=== PATIENT | female | born 1985 | race American Indian/Alaskan Native ===

== ENCOUNTER 2020-11-25 12:46 | Emergency (ER) | payer SELFPAY ==
[2020-11-25 14:01] VITALS: BP 110/79
[2020-11-25 16:07] LABS: Basophils # (Auto) 0.1 K/mm3 (0.0-0.1); Basophils % (Auto) 1.2 % (0.0-1.8); Eosinophils # (Auto) 0.1 K/mm3 (0.0-0.4); Eosinophils % (Auto) 2.9 % (0.0-4.3); Hematocrit 36.6 % (30.3-42.9); Hemoglobin 11.9 gm/dl (10.1-14.3); Lymphocytes # (Auto) 1.9 K/mm3 (1.2-5.4); Mean Corpuscular HGB Conc 33 % (30-34); Mean Corpuscular Volume 79 fl (79-97); Monocytes # (Auto) 0.4 K/mm3 (0.0-0.8); Monocytes % (Auto) 7.1 % (0.0-7.3); Platelet Count 311 K/mm3 (140-440); Red Blood Count 4.62 M/mm3 (3.65-5.03); Red Cell Distribution Width 16.7 % (13.2-15.2)
--- NOTE | 2020-11-25 16:12 | Emergency Department Report ---
ED HPI - General Chief complaint: Vaginal Bleeding Stated complaint: MISCARRIAGE Time Seen by Provider: 11/25/20 14:55 Source: patient Mode of arrival: Ambulatory Limitations: No Limitations - History of Present Illness Initial comments: 35-year-old female presents to the ER today with complaint of abnormal vaginal bleeding and . Patient states that she took a home test this past Monday and it was positive. She states that she started with light pink spotting today. She states that she has only had to use 1 pad. Her last menstrual cycle was October 15. She denies any abdominal pain cramping/pelvic pain or any abnormal discharge. She is G3, P0 Ab2 (1 miscarriage, 1 ). She denies any history of anemia or any abnormal bleeding disorders. She is not on any blood thinners. She reports no additional symptoms at this time. MD Complaint: vaginal bleeding -: Sudden - Related Data Allergies Allergy/AdvReac Type Severity Reaction Status Date / Time Sulfa (Sulfonamide Allergy Swelling Verified 11/25/20 13:57 Antibiotics) ED Review of Systems ROS: Stated complaint: MISCARRIAGE Other details as noted in HPI Comment: All other systems reviewed and negative Constitutional: denies: chills, fever Eyes: denies: eye pain, eye discharge, vision change ENT: denies: ear pain, throat pain, dental pain, hearing loss, epistaxis, congestion Respiratory: denies: cough, shortness of breath, SOB with exertion, SOB at rest, wheezing Cardiovascular: denies: chest pain, palpitations Gastrointestinal: denies: abdominal pain, nausea, vomiting, diarrhea, constipation, hematemesis Genitourinary: denies: urgency, dysuria, frequency, hematuria, discharge, abnormal menses, dyspareunia Musculoskeletal: denies: back pain, joint swelling, arthralgia Skin: denies: rash, lesions, change in color, change in hair/nails, pruritus Neurological: denies: headache, weakness, numbness, paresthesias, confusion, a bnormal gait, vertigo Psychiatric: denies: anxiety, depression, auditory hallucinations, visual hallucinations, homicidal thoughts, suicidal thoughts Hematological/Lymphatic: denies: easy bleeding, easy bruising ED Past Medical Hx - Past Medical History Previous Medical History?: No - Surgical History Additional Surgical History: MYOECTOMY ED Physical Exam - General Limitations: No Limitations General appearance: alert, in no apparent distress - Head Head exam: Present: atraumatic, normocephalic, normal inspection - Eye Eye exam: Present: normal appearance, PERRL, EOMI Pupils: Present: normal accommodation - Neck Neck exam: Present: normal inspection - Respiratory Respiratory exam: Present: normal lung sounds bilaterally. Absent: respiratory distress, wheezes, rales, rhonchi - Cardiovascular Cardiovascular Exam: Present: regular rate, normal rhythm, normal heart sounds - GI/Abdominal GI/Abdominal exam: Present: soft. Absent: distended, tenderness, guarding, rebound - Neurological Exam Neurological exam: Present: alert, oriented X3, CN II-XII intact, normal gait - Psychiatric Psychiatric exam: Present: normal affect, normal mood - Skin Skin exam: Present: intact ED Course Vital Signs 11/25/20 14:00 Temperature 98.8 F Pulse Rate 67 Respiratory 20 Rate Blood Pressure 110/79 O2 Sat by Pulse 95 Oximetry ED Medical Decision Making - Lab Data Result diagrams: 11/25/20 15:36 11/25/20 15:36 - Medical Decision Making All labs reviewed --CBC and CMP unremarkable. Quantitative hCG measures at 286 0.4 currently. Patient currently resting comfortably. She is not in any acute distress. She denies any abdominal pelvic pain. She denies any worsening bleeding since she has been in the ER. Given that patient only has light bleeding to spotting and she has no abdominal pelvic pain and with low quantitative hCG levels, OB ultrasound not indicated at this time. I discussed outpatient lab work with her in detail. She was given copy of her results. Informed her at this time her quantitative hCG levels will need to be monitored to see if it is progressing or if is declining. She will need to follow-up in 48 to 72 hours to have repeat quantitative hCG levels done. She does not currently have an OB and I did give her 2 recommendations. She was also informed to return to the ER if she starts developing any pelvic or abdominal pain and worsening bleeding. Patient expressed understanding of all and results and instructions and agree with plan. Patient was stable at time of discharge. Critical care attestation.: If time is entered above; I have spent that time in minutes in the direct care of this critically ill patient, excluding procedure time. ED Disposition Clinical Impression: Threatened miscarriage in early Disposition: DC-01 TO HOME OR SELFCARE Is pt being admited?: No Does the pt Need Aspirin: No Condition: Stable Instructions: Threatened Miscarriage, [id number] Additional Instructions: I recommend that you follow-up with one of the [facility] listed on your discharge instructions in the next 48 to 72 hours for repeat of your quant hCG. If you are unable to follow-up return to the ER. Return sooner to the ER if you develop any abdominal pelvic pain and if you develop any worsening vaginal bleeding. Referrals: [facility] [Provider Group] - 2-3 Days [facility] [Provider Group] - 3-5 Days Time of Disposition: 16:41
[2020-11-25 16:28] LABS: Alanine Aminotransferase 7 units/L (7-56); Albumin 4.1 g/dL (3.9-5); BUN/Creatinine Ratio 9; Blood Urea Nitrogen 7 mg/dL (7-17); Hemolysis Index 2
[2020-11-25 17:01] LABS: Bilirubin,Urine NEG (Negative); Blood,Urine LG (Negative); Color,Urine Yellow (Yellow); Mucus,Urine 3+ /HPF; Urobilinogen,Urine < 2.0 mg/dL (<2.0)
== END 2020-11-25 17:00 | disposition home or self-care (01) ==
LOC: ED 12:46
DX: O20.0 Threatened abortion (principal); Z3A.01 Less than 8 weeks gestation of pregnancy
CPT/HCPCS: 36415; 80053; 81001; 84702; 85025; 86900; 86901; 99283